=== PATIENT | male | born 1970 | race Caucasian/White ===

== ENCOUNTER 2022-03-09 20:03 | Observation (INO) ==
[2022-03-09 20:30] LABS: Basophils % 0.5 % (0.0-0.8); Eosinophils % 0.6 % (0.00-10.9); Hematocrit 49.6 VOL% (42.0-52.0); Hemoglobin 16.3 GM/DL (14.0-18.0); Immature Granulocytes % 0.3 %; Immature Granulocytes Absolute 0.02 #; Lymphocytes # 1.8 10*3/uL (1.4-4.0); Lymphocytes % 28.2 % (21.2-54.2); Mean Corpuscular HGB Conc 32.9 GM/DL (32-36); Mean Platelet Volume 9.9 FL (9.6-12.0); Monocytes # 0.4 10*3/uL (0.11-0.8); Monocytes % 5.7 % (1.7-12.7); Neutrophils % 64.7 % (38.7-73.9); Platelet Count 208 T/CUMM (130-400); Red Blood Count 5.45 MC/CUMM (3.8-5.5); Red Cell Distribution Width 12.8 % (9.3-17.3); White Blood Count 6.5 T/CUMM (4-12)
[2022-03-09] MEDS ORDERED: ONDANSETRON 4 MG/2 ML VIAL IV STA (20:36)
[2022-03-09] MEDS ORDERED: NITROGLYCERIN 2% OINT 1 INCH/GM PACK TOP STA (20:36)
[2022-03-09] MEDS ORDERED: ASPIRIN 325 MG TABLET PO STA (20:36)
[2022-03-09] MEDS ORDERED: ALUM/MAG/SIMETH/LIDO VISC 1:1 30 ML BOTTLE PO STA (20:36)
[2022-03-09] MEDS ORDERED: hydrALAZINE 20 MG/1 ML VIAL IV STA (20:36)
[2022-03-09] MEDS ORDERED: MORPHINE 2 MG/1 ML SYRINGE IV STA (20:36)
[2022-03-09 21:05] LABS: Alanine Aminotransferase 31 U/L (16-61); Albumin 4.1 G/DL (3.4-5.0); Alkaline Phosphatase 116 U/L (45-117); Aspartate Amino Transferase 20 U/L (0-37); Bilirubin,Total < 0.39 MG/DL (0.20-1.00); Blood Urea Nitrogen 14 MG/DL (7-18); Calcium 9.3 MG/DL (8.5-10.1); Carbon Dioxide 29 MMOL/L (21-32); Chloride 105 MMOL/L (98-107); Glucose 275 MG/DL (74-106); Osmolality,Calculated 287.5 MOS/KG (273-304); Potassium 3.5 MMOL/L (3.5-5.1); Sodium 139 MMOL/L (136-145); Total Protein 7.2 G/DL (6.4-8.2)
[2022-03-09] MEDS ORDERED: LABETALOL 20 MG/4 ML SYRINGE IV STA (21:09)
[2022-03-09] MEDS ORDERED: LABETALOL 20 MG/4 ML SYRINGE IV ONE (21:09)
[2022-03-09] MEDS ORDERED: ZALEPLON 5 MG CAPSULE PO PRN (21:58)
[2022-03-09] MEDS ORDERED: hydrALAZINE 20 MG/1 ML VIAL IV PRN (21:58)
[2022-03-09] MEDS ORDERED: ONDANSETRON 4 MG/2 ML VIAL IV PRN (21:58)
[2022-03-09] MEDS ORDERED: diphenhydrAMINE CAP 25 MG CAPSULE PO PRN (21:58)
[2022-03-09] MEDS ORDERED: GLUCAGON 1 MG VIAL IM PRN ×2 (21:58)
[2022-03-09] MEDS ORDERED: DEXTROSE 50% 25 GM/50 ML VIAL IV PRN (21:58)
[2022-03-09] MEDS ORDERED: ACETAMINOPHEN 325 MG TABLET PO PRN (21:58)
[2022-03-09] MEDS ORDERED: guaiFENesin/DM ER 600-30 MG TABLET PO PRN (21:58)
[2022-03-09] MEDS ORDERED: NICOTINE 21 MG/24 HR PATCH TRANSDERM PRN (21:58)
[2022-03-09] MEDS ORDERED: hydroCHLOROthiazide 25 MG TABLET PO SCH (22:00)
[2022-03-09] MEDS ORDERED: DEXTROSE 10% 250 ML BAG IV PRN (22:04)
[2022-03-09] MEDS ORDERED: lisinopriL 20 MG TABLET PO SCH (22:30)
[2022-03-10] MEDS: MORPHINE 2 MG/1 ML SYRINGE IV PRN ×2 (00:20→05:42)
[2022-03-10 03:35] LABS: Basophils % 0.5 % (0.0-0.8); Eosinophils % 0.6 % (0.00-10.9); Hematocrit 43.5 VOL% (42.0-52.0); Hemoglobin 14.5 GM/DL (14.0-18.0); Immature Granulocytes % 0.3 %; Immature Granulocytes Absolute 0.02 #; Lymphocytes # 2.1 10*3/uL (1.4-4.0); Lymphocytes % 33.3 % (21.2-54.2); Mean Corpuscular HGB Conc 33.3 GM/DL (32-36); Mean Corpuscular Volume 90.1 FL (87-102); Mean Platelet Volume 9.9 FL (9.6-12.0); Monocytes # 0.4 10*3/uL (0.11-0.8); Monocytes % 6.8 % (1.7-12.7); Neutrophils % 58.5 % (38.7-73.9); Platelet Count 191 T/CUMM (130-400); Red Blood Count 4.83 MC/CUMM (3.8-5.5); Red Cell Distribution Width 12.7 % (9.3-17.3); White Blood Count 6.2 T/CUMM (4-12)
[2022-03-10 03:56] LABS: Calcium 8.2 MG/DL (8.5-10.1); Potassium 3.9 MMOL/L (3.5-5.1)
[2022-03-10 03:59] LABS: Risk Ratio 2.73; VLDL Cholesterol 9.8 MG/DL
[2022-03-10] MEDS ORDERED: INSULIN LISPRO 100 UNIT/ML SUBCUT SCH (07:30)
[2022-03-10 08:59] VITALS: BP 155/90
[2022-03-10] MEDS ORDERED: TRIAMTERENE/HCTZ 37.5-25 MG CAPSULE PO SCH (09:00)
[2022-03-10] MEDS ORDERED: busPIRone 10 MG TABLET PO SCH (09:00)
[2022-03-10] MEDS ORDERED: VENLAFAXINE XR 75 MG CAPSULE PO SCH (09:00)
[2022-03-10] MEDS ORDERED: BISACODYL 5 MG TABLET PO SCH (09:00)
[2022-03-10] MEDS ORDERED: PANTOPRAZOLE 40 MG TABLET PO SCH (09:00)
[2022-03-10] MEDS ORDERED: VENLAFAXINE 150 MG PO SCH (09:00)
[2022-03-10] MEDS ORDERED: INSULIN GLARGINE 100 UNIT/ML SUBCUT SCH (09:00)
[2022-03-10] MEDS ORDERED: ENOXAPARIN 40 MG/0.4 ML SYRINGE SUBCUT SCH (09:00)
[2022-03-10] MEDS ORDERED: TRAZODONE 100 MG PO SCH (21:00)
== END 2022-03-10 09:15 | disposition home or self-care (01) ==
LOC: N.ED 20:03 → N.EDINP 20:03
PROVIDERS: ADMIT Internal Medicine; ATTEND Internal Medicine